=== PATIENT | male | born 1970 | race Caucasian/White ===

== ENCOUNTER 2023-03-03 14:39 | Emergency (ER) | payer MEDICAID ==
[~2023-03-03] VITALS: Ht 175.3 cm; Wt 83.9 kg
[2023-03-03 14:56] VITALS: BP 126/73
[2023-03-03 17:27] LABS: BASOPHILS % 0.2 % (0.0-2.0); EOSINOPHILS % 0.3 % (0.0-5.0); HEMATOCRIT. 45.9 % (42.0-52.0); HEMOGLOBIN. 16.4 g/dL (14.0-18.0); LYMPHOCYTES % 21.5 % (20.0-50.0); MEAN CORPUSCULAR HEMOGLOBIN 34.9 pg (28.0-32.0); MEAN CORPUSCULAR VOLUME 97.9 fL (80.0-94.0); MEAN PLATELET VOLUME 6.2 fl (7.4-10.4); MONOCYTES % 9.5 % (2.0-8.0); NEUTROPHILS % 68.5 % (40.0-76.0); PLATELET 247 x1000/uL (130-400); RED BLOOD CELL COUNT 4.69 mill/uL (4.7-6.1); RED CELL DISTRIBUTION WIDTH 13.5 % (11.6-14.6)
[2023-03-03 17:38] LABS: CHLORIDE 104 mEq/L (98-107)
== END 2023-03-03 22:30 | disposition left against medical advice (07) ==
LOC: ER 15:51
DX: Z53.21 Procedure and treatment not carried out due to patient leaving prior to being seen by health care provider (principal); I49.9 Cardiac arrhythmia, unspecified
CPT/HCPCS: 36415; 80053; 84484; 85025; 93005; 99281

== ENCOUNTER 2024-01-04 13:00 | Emergency (ER) | payer MEDICAID ==
[~2024-01-04] VITALS: Ht 175.3 cm; Wt 81.6 kg
[2024-01-04 13:21] VITALS: TEMP 98.1; O2SAT 98
[2024-01-04] MEDS ORDERED: IBUP-2029 MT (15:55)
[2024-01-04 18:43] VITALS: BP 150/96; PULSE 77; RESP 18
== END 2024-01-04 16:31 | disposition home or self-care (01) ==
LOC: ER 13:12
DX: M79.605 Pain in left leg (principal); M79.89 Other specified soft tissue disorders; Z90.49 Acquired absence of other specified parts of digestive tract
CPT/HCPCS: 93971; 99284

== ENCOUNTER 2024-02-22 11:35 | Emergency (ER) | payer MEDICAID ==
[~2024-02-22] VITALS: Ht 175.3 cm; Wt 81.6 kg
[~2024-02-22 11:35] MED LIST: IBUP-2029 MT
[2024-02-22 11:54] VITALS: O2SAT 97
[2024-02-22 13:57] VITALS: BP 126/82; PULSE 89; RESP 19; TEMP 98.3
== END 2024-02-22 14:00 | disposition home or self-care (01) ==
LOC: ER 11:35
DX: M79.604 Pain in right leg (principal); Z90.49 Acquired absence of other specified parts of digestive tract
CPT/HCPCS: 93971; 99284